=== PATIENT | female | born 1995 | race Caucasian/White ===

== ENCOUNTER 2016-12-08 20:27 | Emergency (ER) | payer SELFPAY ==
[2016-12-08 21:20] VITALS: BP 111/71
== END 2016-12-09 00:57 | disposition left against medical advice (07) ==
LOC: ED 20:27
DX: M54.9 Dorsalgia, unspecified (principal); V89.2XXA Person injured in unspecified motor-vehicle accident, traffic, initial encounter; Y93.9 Activity, unspecified; Y92.410 Unspecified street and highway as the place of occurrence of the external cause; Y99.9 Unspecified external cause status; Z53.21 Procedure and treatment not carried out due to patient leaving prior to being seen by health care provider